=== PATIENT | female | born 1990 | race Caucasian/White ===

== ENCOUNTER 2022-04-07 15:40 | Emergency (ER) | payer MEDICAID, OTHER ==
[~2022-04-07] VITALS: Ht 162.6 cm; Wt 88.5 kg
[2022-04-07 16:01] VITALS: BP 152/93
[2022-04-07] MEDS ORDERED: ONDANSETRON 4 MG/2 ML VIAL IVP ONE (16:15)
[2022-04-07] MEDS ORDERED: NACL 0.9% 1,000 ML IV SCH (16:15)
[2022-04-07] MEDS ORDERED: KETOROLAC 30 MG/ML VIAL IVP ONE (16:15)
[2022-04-07 16:28] LABS: BASOPHILS # (AUTO) 0.1 K/uL (0.00-0.22); BASOPHILS % (AUTO) 0.8 % (0.0-2.0); EOSINOPHILS # (AUTO) 0.2 K/uL (0-0.4); EOSINOPHILS % (AUTO) 1.9 % (0.0-4.0); HEMOGLOBIN 11.6 g/dL (12.0-16.0); LYMPHOCYTES # (AUTO) 2.9 K/uL (2.5-16.5); LYMPHOCYTES % (AUTO) 32.9 % (20.5-51.1); MEAN CORPUSCULAR HEMOGLOBIN 26 pg (27-31); MEAN CORPUSCULAR HGB CONC 32 g/dL (33-37); MEAN CORPUSCULAR VOLUME 81.3 fL (80-94); MONOCYTES # (AUTO) 0.6 K/uL (0.8-1.0); NEUTROPHILS % (AUTO) 57.4 % (42.2-75.2); PLATELET COUNT (AUTO) 341 K/uL (140-450); RED BLOOD CELL COUNT(AUTO) 4.43 MIL/uL (4.20-5.40); RED CELL DISTRIBUTION WIDTH 16.6 % (11.6-13.7); WHITE BLOOD COUNT (AUTO) 8.7 K/uL (4.8-10.8)
[2022-04-07 16:46] LABS: ALBUMIN 3.7 g/dL (3.4-5.0); CARBON DIOXIDE 24.8 mmol/L (21-32); CREATININE 0.8 mg/dL (0.6-1.3); POTASSIUM 3.8 mmol/L (3.5-5.1); TOTAL BILIRUBIN 0.2 mg/dL (0.0-1.0)
--- NOTE | 2022-04-07 17:42 | NUR ---
SUPERINTENDENT RADIO COMMUNICATIONS AT BEDSIDE
[2022-04-07] MEDS ORDERED: KETOROLAC 30 MG/ML VIAL ONE (17:56)
[2022-04-07] MEDS ORDERED: ONDANSETRON 4 MG/2 ML VIAL ONE (17:57)
--- NOTE | 2022-04-07 18:00 | NUR ---
FIRST CONTACT WITH PT. PT REPORTS NAUSEA AND DIZZINESS X1 MONTH. ASSOCIATED RUQ ABD PAIN STARTING TODAY, 01/31. NO VOMITING. DENIES FEVER, CHILLS. DENIES URINARY COMPLAINTS. VSS. IV ESTABLISHED. WILL CONT TO MONITOR
--- NOTE | 2022-04-07 19:21 | NUR ---
REPORT GIVEN TO JUNE MILLER
[2022-04-07] MEDS ORDERED: ONDA8TAB87 PO (19:54)
[2022-04-07] MEDS ORDERED: IBUP-2213 PO (19:54)
[2022-04-07 20:19] VITALS: BP 118/81
--- NOTE | 2022-04-07 20:20 | NUR ---
Patient discharged with v/s stable. Written and verbal after care instructions given and explained. Patient alert, oriented and verbalized understanding of instructions. Ambulatory with steady gait. All questions addressed prior to discharge. ID band removed. Patient advised to follow up with PMD. Rx of IBUPROFEN AND ZOFRAN given. Patient educated on indication of medication including possible reaction and side effects. Opportunity to ask questions provided and answered. VSS, A/OX4, AMBULATORY, UNLABORED BREATHING, AND CALM DEMEANOR.
== END 2022-04-07 20:20 | disposition home or self-care (01) ==
LOC: MED 15:40
DX: R10.11 Right upper quadrant pain (principal); R11.0 Nausea; R10.13 Epigastric pain; E11.9 Type 2 diabetes mellitus without complications; Z79.4 Long term (current) use of insulin; Z72.89 Other problems related to lifestyle
CPT/HCPCS: 36415; 76705; 80053; 81002; 81025; 83690; 85025; 96361; 96374; 96375; 99284; J1885; J2405; J7030; Q0092

== ENCOUNTER 2024-03-24 22:16 | Emergency (ER) | payer OTHER ==
[~2024-03-24] VITALS: Ht 162.6 cm; Wt 84.4 kg
[~2024-03-24 22:16] MED LIST: IBUP-2213 PO; ONDA8TAB87 PO
[2024-03-24 22:29] VITALS: BP 133/75; PULSE 88; RESP 16; TEMP 97.1; O2SAT 99
[2024-03-25 00:52] VITALS: O2SAT 99
[2024-03-25 00:56] VITALS: BP 133/75; PULSE 88; RESP 16; TEMP 97.1
[2024-03-25 01:39] LABS: BASOPHILS # (AUTO) 0.1 K/uL (0.00-0.22); BASOPHILS % (AUTO) 0.5 % (0.0-2.0); EOSINOPHILS # (AUTO) 0.4 K/uL (0-0.4); EOSINOPHILS % (AUTO) 2.5 % (0.0-4.0); HEMATOCRIT 34.4 % (36-48); HEMOGLOBIN 11.3 g/dL (12.0-16.0); LYMPHOCYTES # (AUTO) 3.1 K/uL (2.5-16.5); LYMPHOCYTES % (AUTO) 21.5 % (20.5-51.1); MEAN CORPUSCULAR HEMOGLOBIN 28 pg (27-31); MEAN CORPUSCULAR HGB CONC 33 g/dL (33-37); MEAN CORPUSCULAR VOLUME 84.5 fL (80-94); MONOCYTES # (AUTO) 0.8 K/uL (0.8-1.0); MONOCYTES % (AUTO) 5.5 % (1.7-9.3); NEUTROPHILS # (AUTO) 10.2 K/uL (1.8-7.7); PLATELET COUNT (AUTO) 345 K/uL (140-450); RED BLOOD CELL COUNT(AUTO) 4.07 MIL/uL (4.20-5.40); RED CELL DISTRIBUTION WIDTH 15.6 % (11.6-13.7); WHITE BLOOD COUNT (AUTO) 14.5 K/uL (4.8-10.8)
[2024-03-25 01:46] LABS: APPEARANCE,URINE CLEAR (CLEAR); BILIRUBIN,URINE NEGATIVE (NEGATIVE); BLOOD, URINE 3+ (NEGATIVE); COLOR,URINE YELLOW (YELLOW); LEUKOCYTE ESTERASE ,URINE 1+ (NEGATIVE); NITRITE, URINE POSITIVE (NEGATIVE); PH,URINE 6.5 (5.0-9.0); PROTEIN,URINE 3+ (NEGATIVE); UGLUCOSE NEGATIVE (NEGATIVE)
[2024-03-25 01:55] LABS: ALBUMIN 3.7 g/dL (3.4-5.0); BILIRUBIN,DIRECT 0.1 mg/dL (0.0-0.3); TOTAL BILIRUBIN 0.4 mg/dL (0.0-1.0); TOTAL PROTEIN, SERUM 7.2 g/dL (6.4-8.2)
[2024-03-25 02:07] LABS: RBC,URINE TOO NUMEROUS TO COUN /HPF (0-5)
[2024-03-25 02:08] LABS: BACTERIA,URINE 10-30 (MOD) /HPF (None Seen); MUCUS,URINE 1+ /LPF (None Seen); SQUAMOUS EPITHELIAL CELL,UR 0-3 (FEW) /LPF (0-3 (FEW)); WBC,URINE >25 (MANY) /HPF (0-5)
[2024-03-25] MEDS ORDERED: cefTRIAXone 500 MG VIAL ONE (02:49)
[2024-03-25 03:00] LABS: ANION GAP 13.8 (8-16); CALCIUM 8.7 mg/dL (8.5-10.1); CARBON DIOXIDE 27.6 mmol/L (21-32); POTASSIUM 3.4 mmol/L (3.5-5.1)
[2024-03-25 03:01] LABS: CREATININE 0.8 mg/dL (0.6-1.3)
[2024-03-25 03:44] VITALS: O2SAT 99
[2024-03-25] MEDS ORDERED: CEFP200T20 PO (04:19)
[2024-03-25] MEDS ORDERED: ONDA-188 PO (04:20)
== END 2024-03-25 04:32 | disposition home or self-care (01) ==
LOC: MED 22:16
DX: N12 Tubulo-interstitial nephritis, not specified as acute or chronic (principal); E11.9 Type 2 diabetes mellitus without complications; Z79.4 Long term (current) use of insulin; Z79.899 Other long term (current) drug therapy
CPT/HCPCS: 36415; 74176; 80048; 80076; 81001; 81025; 83690; 85025; 87086; 87186; 96365; 99285; J0696